=== PATIENT | female | born 1940 | race Caucasian/White ===

== ENCOUNTER 2019-08-01 11:41 | Emergency (ER) | payer OTHER, MEDICARE ==
[2019-08-01 12:34] VITALS: BP 149/84
--- NOTE | 2019-08-01 12:41 | UC ---
Complaint Female HPI - HPI Summary HPI Summary: Pt was in the hospital for one night last week because of CHF and she needed to have a thoracentesis done to remove fluid from her lungs. She states whenever she is in the hospital, she gets a UTI. She is on Coumadin for past CVA as well as A-fib. She complains of bladder feeling bloated and urinary frequency and minimal burning. - History Of Current Complaint Chief Complaint: UCGU Stated Complaint: URINARY COMPLAINT Time Seen by Provider: 08/01/19 12:16 Hx Obtained From: Patient ?: No Onset/Duration: Gradual Onset Timing: Intermittent Severity Initially: Mild Severity Currently: Mild Pain Intensity: 0 Character: Burning Aggravating Factor(s): Urination - Allergies/Home Medications Allergies/Adverse Reactions: Allergies Allergy/AdvReac Type Severity Reaction Status Date / Time amlodipine [From [facility]] Allergy Swelling Verified 08/01/19 12:23 SEASONAL Allergy WATERY Uncoded 08/01/19 12:23 HAYFEVER/ENVIRONMENTAL EYES, RUNNY NOSE Home Medications: Home Medications ALPRAZolam TAB* [Xanax TAB*] 0.5 mg PO BEDTIME 08/01/19 [History Confirmed 08/01] Aspirin EC TAB* [Ecotrin EC Low Dose 81 MG*] 81 mg PO DAILY 08/01/19 [History Confirmed 08/01/19] Atorvastatin* [Lipitor 80 MG*] 1 tab DAILY 08/01/19 [History Confirmed 08/01/19] Metoprolol Tartrate TAB* [Lopressor TAB*] 1 tab BID 08/01/19 [History Confirmed 08/01/19] NIFEdipine ER TAB* [Procardia Xl TAB*] 1 tab DAILY 08/01/19 [History Confirmed 08/01/19] Potassium Chlor TAB* [Potassium Chlor TAB 20 MEQ*] 1 tab DAILY 08/01/19 [ History Confirmed 08/01/19] Torsemide TAB* [Demadex*] 20 mg PO DAILY 08/01/19 [History Confirmed 08/01/19] Warfarin TAB(*) [Coumadin TAB(*)] 2 mg PO DAILY 08/01/19 [History Confirmed ] glyBURIDE TAB* [Diabeta TAB*] 2.5 mg PO DAILY 08/01/19 [History Confirmed ] hydrALAZINE TAB* [Apresoline TAB*] 50 mg PO TID 08/01/19 [History Confirmed ] PMH/Surg Hx/FS Hx/Imm Hx Previously Healthy: Yes Endocrine History: Diabetes Cardiovascular History: Hypertension Cancer History: Breast Cancer - Surgical History Surgical History: Yes Surgery Procedure, Year, and Place: 2002 QUADRUPLE BYPASS, [place]. 2010 LEFT CAROTID ENDARECTOMY, [facility]. APPENDECTOMY,. EXCISION SKIN CARCINOMA FROM NOSE, OFFICE, Right breast Lumpectomy 2014. Aortic valve replacement ( titanium) 2014 - Family History Known Family History: Positive: Non-Contributory - Social History Occupation: Retired Alcohol Use: None Substance Use Type: None Smoking Status (MU): Former Smoker Review of Systems All Other Systems Reviewed And Are Negative: Yes Genitourinary: Positive: Dysuria, Frequency, Other - "Bladder bloating" Is Patient Immunocompromised?: No Physical Exam Triage Information Reviewed: Yes Appearance: Well-Appearing, No Pain Distress, Well-Nourished Vital Signs: Initial Vital Signs Temp 97.6 F 08/01/19 12:24 Pulse 93 08/01/19 12:24 Resp 20 08/01/19 12:24 BP 149/84 08/01/19 12:24 Pulse Ox 93 08/01/19 12:24 Vital Signs Reviewed: Yes Respiratory: Positive: Normal breath sounds, No respiratory distress, No accessory muscle use, Other: - Very mild crackles LLL posteriorly which pt states she always has. Cardiovascular: Positive: No Murmur, Pulses Normal, Brisk Capillary Refill, Other: - Irregular heart rate..pt states normal because she is always in A-fib. Abdomen Description: Positive: Nontender, No Organomegaly, Soft. Negative: CVA Tenderness (R), CVA Tenderness (L), Distended, Guarding, Hepatomegaly, Splenomegaly Bowel Sounds: Positive: Present Neurological: Positive: Alert, Muscle Tone Normal Psychological Exam: Normal Complaint Female Dx - Course Course Of Treatment: U/A: Trace of leuks. Based on patients symptoms, I am going to treat her for a UTI and she is going to inform her PCP she is on an antibiotic. She had her Coumadin level checked 1 1/2 weeks ago and it was in a good range per pt. - Differential Dx/Diagnosis Provider Diagnosis: UTI (urinary tract infection) Discharge ED - Sign-Out/Discharge Documenting (check all that apply): Patient Departure All imaging exams completed and their final reports reviewed: No Studies - Discharge Plan Condition: Fair Disposition: HOME Prescriptions: Cephalexin CAP* [Keflex 250 CAP*] 250 mg PO TID 7 Days #21 cap Patient Education Materials: Urinary Tract Infection in Older Adults (ED) Referrals: Harvinder Enriquez [Primary Care Provider] - Additional Instructions: Call your doctor tomorrow and let him know you are on Cephalexin for a Urinary Tract Infection. Go to the ER if you develop fever, chills, vomiting - Billing Disposition and Condition Condition: FAIR Disposition: Home - Attestation Statements Provider Attestation: I was available for consult. This patient was seen by the CARLOS. The patient was not presented to , seen by or examined by ak -Yogesh Lozano MD
== END 2019-08-01 12:52 | disposition home or self-care (01) ==
LOC: UCCORT 11:41
DX: N39.0 Urinary tract infection, site not specified (principal); I10 Essential (primary) hypertension; E11.9 Type 2 diabetes mellitus without complications; Z87.891 Personal history of nicotine dependence; Z88.8 Allergy status to other drugs, medicaments and biological substances; Z91.09 Other allergy status, other than to drugs and biological substances; Z79.82 Long term (current) use of aspirin; Z79.01 Long term (current) use of anticoagulants; Z79.84 Long term (current) use of oral hypoglycemic drugs; Z85.3 Personal history of malignant neoplasm of breast; Z86.73 Personal history of transient ischemic attack (TIA), and cerebral infarction without residual deficits
CPT/HCPCS: 81003; 87086; 99212; G0463

== ENCOUNTER 2019-12-05 16:10 | Emergency (ER) | payer OTHER, MEDICARE ==
--- NOTE | 2019-12-05 17:16 | UC ---
Syncope/New Syncope HPI - HPI Summary HPI Summary: 79 yo woman was walking in the [place] with [place] walker and fell. Denies true LOC, but has no recollection of why she fell. C/O left knee and shoulder pain. Had a pacemaker placed 5 weeks ago. - History Of Current Complaint Chief Complaint: UCTrauma Stated Complaint: L ARM INJ Time Seen by Provider: 12/05/19 16:58 Hx Obtained From: Patient Onset/Duration: Sudden Onset, Lasting Hours - 2 Activity At Onset: Exertion - walking Context: Unwitnessed Associated Head Trauma: No Pain Intensity: 2 Aggravating Factor(s): Nothing Alleviating Factor(s): Spontaneous Resolution Associated Signs And Symptoms: Positive: Negative - after the event - Risk Factors Cardiac Risk Factors: Family History Dysrhythmia Risk Factors: Age Greater Than 45 Risk Factor(s): ASA, Coumadin - Allergies/Home Medications Allergies/Adverse Reactions: Allergies Allergy/AdvReac Type Severity Reaction Status Date / Time amlodipine [From [facility]] Allergy Swelling Verified 12/05/19 16:50 SEASONAL Allergy WATERY Uncoded 12/05/19 16:50 HAYFEVER/ENVIRONMENTAL EYES, RUNNY NOSE Home Medications: Home Medications ALPRAZolam TAB* [Xanax TAB*] 0.5 mg PO BEDTIME 08/01/19 [History Confirmed 12/04] Aspirin EC TAB* [Ecotrin EC Low Dose 81 MG*] 81 mg PO DAILY 08/01/19 [History Confirmed 12/05/19] Atorvastatin* [Lipitor 80 MG*] 1 tab DAILY 08/01/19 [History Confirmed 12/05/19] Potassium Chlor TAB* [Potassium Chlor TAB 20 MEQ*] 1 tab DAILY 08/01/19 [ History Confirmed 12/05/19] Torsemide TAB* [Demadex*] 40 mg PO SEE INSTRUCTIONS 08/01/19 [History Confirmed 12/05/19] Warfarin TAB(*) [Coumadin TAB(*)] 2 mg PO BEDTIME 08/01/19 [History Confirmed ] glyBURIDE TAB* [Diabeta TAB*] 2.5 mg PO DAILY 08/01/19 [History Confirmed ] hydrALAZINE TAB* [Apresoline TAB*] 50 mg PO TID 08/01/19 [History Confirmed ] Carvedilol [Coreg] 12.5 mg PO BID 12/05/19 [History Confirmed 12/05/19] Levothyroxine TAB* [Synthroid TAB*] 25 mcg PO 0800 12/05/19 [History Confirmed 12/05/19] PMH/Surg Hx/FS Hx/Imm Hx Endocrine History: Diabetes Cardiovascular History: Hypertension, Atrial Fibrillation Respiratory History: COPD - Surgical History Surgical History: Yes Surgery Procedure, Year, and Place: 2002 QUADRUPLE BYPASS, [place], [place]. 2010 LEFT CAROTID ENDARECTOMY, [facility]. APPENDECTOMY,. EXCISION SKIN CARCINOMA FROM NOSE, OFFICE, Right breast Lumpectomy 2014. Aortic valve replacement ( titanium) 2014. Pace maker-10/2019 - Family History Known Family History: Positive: Cardiac Disease, Non-Contributory - Social History Occupation: Retired Lives: Assisted Living Alcohol Use: None Substance Use Type: None Smoking Status (MU): Former Smoker Review of Systems All Other Systems Reviewed And Are Negative: Yes Skin: Positive: Bruising - left knee and left arm Is Patient Immunocompromised?: Yes - Diabetes Physical Exam Triage Information Reviewed: Yes Appearance: Well-Appearing, Well-Nourished, Pain Distress Vital Signs: Initial Vital Signs Temp 97.4 F 12/05/19 16:58 Pulse 51 12/05/19 16:58 Resp 20 12/05/19 16:58 Pulse Ox 94 12/05/19 16:58 Vital Signs Reviewed: Yes Eyes: Positive: Conjunctiva Inflamed Neck: Positive: Nontender Respiratory Exam: Normal Cardiovascular: Positive: RRR, Bradycardia, Murmur:Sys:Grade _?_/ - 3/6 ADE Musculoskeletal: Positive: ROM Limited @ - Left shoulder. Tender proximal humerus with ? anterior dislocation. Left knee with bruising, but no patellar tenderness. Neurological: Positive: Alert, Muscle Tone Normal Psychological Exam: Normal Skin: Positive: Other - bruising. Diagnostics - Radiology No standard instances Radiology Interpretation Completed By: Radiologist Summary of Radiographic Findings: Comminuted prox humerus fracture with possible dislocation. - EKG Cardiac Rate: Bradycardia Cardiac Rhythm: Other Rhythm: Normal - Paced atrial Ectopy: None ST Segment: Normal Syncope Course/Dx - Differential Dx/Diagnosis Differential Diagnosis/HQI/PQRI: Dysrhythmia, Transient Ischemic Attack, Vasovagal Episode Provider Diagnosis: Syncope - Physician Notification/Consults Discussed Patient Care With: Jenni Chester [employer] DRIVER Time Discussed With Above Provider: 17:34 Instructed by Provider To: Transfer - To [facility] Discharge ED - Sign-Out/Discharge Documenting (check all that apply): Patient Departure All imaging exams completed and their final reports reviewed: Yes - Discharge Plan Condition: Guarded Disposition: TRANS HIGHER LVL OF CARE FAC Referrals: Harvinder Enriquez [Primary Care Provider] - - Billing Disposition and Condition Condition: GUARDED Disposition: Trans Higher Lvl of Care Fac
[2019-12-05 17:54] VITALS: BP 146/55
== END 2019-12-05 17:59 | disposition short-term general hospital (02) ==
LOC: UCCORT 16:10
DX: R55 Syncope and collapse (principal); S42.202A Unspecified fracture of upper end of left humerus, initial encounter for closed fracture; S80.02XA Contusion of left knee, initial encounter; W18.30XA Fall on same level, unspecified, initial encounter; Y93.01 Activity, walking, marching and hiking; Y92.9 Unspecified place or not applicable; E11.9 Type 2 diabetes mellitus without complications; Z79.84 Long term (current) use of oral hypoglycemic drugs; I48.91 Unspecified atrial fibrillation; Z79.01 Long term (current) use of anticoagulants; J44.9 Chronic obstructive pulmonary disease, unspecified; Z95.1 Presence of aortocoronary bypass graft; Z95.0 Presence of cardiac pacemaker; Z88.8 Allergy status to other drugs, medicaments and biological substances; Z87.891 Personal history of nicotine dependence
CPT/HCPCS: 99213; G0463